=== PATIENT | male | born 1975 | race Hispanic/Latino ===

== ENCOUNTER 2018-04-27 20:56 | Emergency (ER) | payer OTHER ==
[~2018-04-27] VITALS: Ht 152.4 cm; Wt 86.4 kg
[2018-04-27 21:45] LABS: URINE BILIRUBIN - DIPSTICK NEGATIVE (NEGATIVE); URINE BLOOD DIPSTICK TRACE-INTACT (NEGATIVE); URINE COLOR YELLOW; URINE GLUCOSE - DIPSTICK NEGATIVE (NEGATIVE); URINE KETONE NEGATIVE (NEGATIVE); URINE LEUK ESTERASE NEGATIVE (NEGATIVE); URINE NITRITE - DIPSTICK NEGATIVE (Negative); URINE PH 5.5 (4.5-8.0); URINE PROTEIN - DIPSTICK 100 mg/dL (NEG-TRACE); URINE SPECIFIC GRAVITY >=1.030; URINE UROBILINOGEN - DIPSTICK 0.2 E.U./dL (0.2)
[2018-04-27 21:48] LABS: HEMATOCRIT 49.7 % (39.0-50.0); HEMOGLOBIN 16.7 g/dl (14.0-18.0); IMMATURE GRANULOCYTES 0.5 % (0.0-1.0); MEAN CELL VOLUME 89.4 fL CALC (80.0-100.0); MEAN CORPUSCULAR HGB CONC 33.6 g/L CALC (32.0-36.0); NEUT# 14.91 thou/uL (1.82-7.42); RED BLOOD COUNT 5.56 mill/uL (4.70-6.10)
[2018-04-27 22:02] LABS: URINE CLARITY CLEAR
[2018-04-27 22:03] LABS: ALBUMIN 5.2 g/dL (3.2-5.0); ALKALINE PHOSPHATASE 121 u/l (38-126); AMYLASE 120 u/l (30-110); ANION GAP 20 (6-22 (CALC)); BILIRUBIN, TOTAL 0.5 mg/dL (0.0-1.4); BUN 17 mg/dL (9-20); BUN/CREATININE RATIO 20 (12-20 (CALC)); CARBON DIOXIDE 23 mmol/l (22-30); CHLORIDE 103 mmol/l (95-108); CREATININE 0.9 mg/dL (0.7-1.3); GFR > 60 ML/MIN (>=60 (CALC)); GFR FOR AFR.AMER. > 60 ML/MIN (>=60 (CALC)); LIPASE 173 u/l (23-300); POTASSIUM 3.6 mmol/l (3.5-5.1); SGOT/AST 64 u/l (17-59); SGPT/ALT 90 u/l (21-72); SODIUM 142 mmol/l (137-146); TOTAL PROTEIN 9.7 g/dL (6.3-8.2); URINE FINE GRAN CAST FEW lpf; URINE RBC 0-2 RBC/hpf (0-5); URINE WBC 0-2 WBC/hpf (0-5)
[2018-04-27 22:14] LABS: MYOGLOBIN 21 ng/mL (0 - 121)
[2018-04-28] MEDS ORDERED: CIPROFLOXACN500 MG PO (01:27)
[2018-04-28] MEDS ORDERED: ZOFRAN ODT4 MG PO (01:27)
[2018-04-28] MEDS ORDERED: ULTRAM50 M1 PO (01:27)
[2018-04-28 02:32] VITALS: BP 123/69
== END 2018-04-28 02:32 | disposition home or self-care (01) ==
LOC: ED 20:56
PROVIDERS: Emergency Medicine
DX: K52.9 Noninfective gastroenteritis and colitis, unspecified (principal); R11.2 Nausea with vomiting, unspecified; R10.13 Epigastric pain; K76.0 Fatty (change of) liver, not elsewhere classified; Z72.89 Other problems related to lifestyle; K57.30 Diverticulosis of large intestine without perforation or abscess without bleeding
CPT/HCPCS: Q9967; S0164

== ENCOUNTER 2019-01-11 18:46 | Emergency (ER) | payer BC ==
[~2019-01-11] VITALS: Ht 165.1 cm; Wt 90.0 kg
[~2019-01-11 18:46] MED LIST: CIPROFLOXACN500 MG PO; ULTRAM50 M1 PO; ZOFRAN ODT4 MG PO
[2019-01-11] MEDS ORDERED: PROCTOZONE-HC2.5 % RE (19:32)
[2019-01-11 19:48] VITALS: BP 160/97
== END 2019-01-11 19:55 | disposition home or self-care (01) | DRG 395 ==
LOC: ED 18:46
DX: K64.4 Residual hemorrhoidal skin tags (principal); K60.2 Anal fissure, unspecified

== ENCOUNTER 2019-10-23 | Emergency (ER) | payer BC ==
[~2019-10-23] MED LIST changes: +PROCTOZONE-HC2.5 % RE
[2019-10-23] MEDS ORDERED: AMOXICILLIN875 MG PO (20:16)
== END 2019-10-23 20:30 | disposition home or self-care (01) | DRG 153 ==
DX: J06.9 Acute upper respiratory infection, unspecified (principal)

== ENCOUNTER 2020-01-11 21:46 | Emergency (ER) | payer BC ==
[~2020-01-11 21:46] MED LIST changes: +AMOXICILLIN875 MG PO
[2020-01-11] MEDS ORDERED: DIABETES MED (22:05)
[2020-01-11 22:40] VITALS: BP 156/98
== END 2020-01-11 22:40 | disposition home or self-care (01) | DRG 556 ==
LOC: ED 21:46
DX: M79.89 Other specified soft tissue disorders (principal)

== ENCOUNTER 2022-11-27 05:48 | Emergency (ER) | payer OTHER ==
[~2022-11-27] VITALS: Ht 165.1 cm; Wt 81.6 kg
[2022-11-27] VITALS (7 sets, daily range): BP systolic 138–156; BP diastolic 88–102
[~2022-11-27 05:48] MED LIST changes: +DIABETES MED; +LISINOP/HCTZ1 TA1 PO; +METFORMIN500 M2 PO
[2022-11-27] MEDS ORDERED: MIRALAX17 GM PO (06:52)
== END 2022-11-27 07:45 | disposition home or self-care (01) | DRG 392 ==
LOC: ED 05:48
DX: K59.00 Constipation, unspecified (principal); E11.9 Type 2 diabetes mellitus without complications; I10 Essential (primary) hypertension; Z79.84 Long term (current) use of oral hypoglycemic drugs